=== PATIENT | male | born 1970 | race Caucasian/White ===

== ENCOUNTER 2023-08-31 14:02 | Emergency (ER) | payer MEDICARE ==
[~2023-08-31] VITALS: Ht 172.7 cm; Wt 72.6 kg
[2023-08-31] MEDS ORDERED: BUSP10 PO (14:53)
[2023-08-31] MEDS ORDERED: AMLO5 PO (14:53)
[2023-08-31] MEDS ORDERED: ALBU8HFA2 INH (14:53)
[2023-08-31] MEDS ORDERED: ATOR20 PO (14:53)
[2023-08-31] MEDS ORDERED: QUET300 PO (14:53)
[2023-08-31] MEDS ORDERED: DULO60 PO (14:54)
[2023-08-31] MEDS ORDERED: MIRT15 PO (14:54)
[2023-08-31] MEDS ORDERED: OMEP20ER PO (14:54)
[2023-08-31] MEDS ORDERED: CYCL10 PO (14:54)
[2023-08-31] MEDS ORDERED: TERA5 PO (14:55)
[2023-08-31] MEDS ORDERED: BUPRENORPHIN-N1 EAC1 SL (14:55)
[2023-08-31] MEDS ORDERED: SUMA25 PO (14:55)
[2023-08-31 15:00] LABS: BASOPHILS ABSOLUTE AUTO 0.02 K/mm3 (0.00-0.23); BASOPHILS PERCENT AUTO 0 % (0-2); EOSINOPHILS ABSOLUTE AUTO 0.11 K/mm3 (0.00-0.68); EOSINOPHILS PERCENT AUTO 2 % (0-6); Hematocrit 39.5 % (37.0-53.0); Hemoglobin 13.3 g/dL (13.5-17.5); IMMATURE GRAN ABSOLUTE AUTO 0.01 K/mm3 (0.00-0.10); IMMATURE GRAN PERCENT AUTO 0 % (0-1); LYMPHOCYTES ABSOLUTE AUTO 2.14 K/mm3 (0.84-5.20); LYMPHOCYTES PERCENT AUTO 40 % (21-46); MONOCYTES ABSOLUTE AUTO 0.34 K/mm3 (0.16-1.47); MONOCYTES PERCENT AUTO 6 % (4-13); Mean Corpuscular HGB 30.6 pg (26.0-34.0); Mean Corpuscular HGB Conc 33.7 g/dL (31.5-36.5); Mean Corpuscular Volume 91 fL (80-100); Mean Platelet Volume 8.8 fL (9.1-12.4); NEUTROPHILS ABSOLUTE AUTO 2.78 K/mm3 (1.96-9.15); NEUTROPHILS PERCENT AUTO 52 % (41-73); Platelet Count 210 K/mm3 (150-400); RDW Coefficient Variation 12.1 % (11.7-14.2); RDW Standard Deviation 41.1 fL (35.1-46.3); Red Blood Cell Count 4.34 M/mm3 (4.30-5.90)
[2023-08-31 15:22] LABS: Albumin, Blood 3.9 g/dL (3.4-5.0); Albumin/Globulin Ratio 1.1 (0.8-1.8); Bilirubin, Total 0.4 mg/dL (0.1-1.0); Bun/Creatinine Ratio 12.4 (12.0-20.0); Creatinine, Blood 0.97 mg/dL (0.60-1.20); Globulin, Blood 3.6 g/dL (2.2-4.0); Magnesium, Blood 2.2 mg/dL (1.6-2.4); Total Protein, Blood 7.5 g/dL (6.4-8.2)
[2023-08-31 16:48] VITALS: BP 124/62
== END 2023-08-31 16:49 | disposition home or self-care (01) ==
LOC: ER 14:02
PROVIDERS: Physician Assistant
DX: R53.1 Weakness (principal); R20.2 Paresthesia of skin; F17.200 Nicotine dependence, unspecified, uncomplicated
CPT/HCPCS: 70450; 80053; 83735; 85025; 99284-25

== ENCOUNTER 2024-02-16 12:04 | Inpatient (IN) | payer MEDICARE ==
[~2024-02-16] VITALS: Ht 172.7 cm; Wt 71.4 kg
[~2024-02-16 12:04] MED LIST: ALBU8HFA2 INH; AMLO5 PO; ATOR20 PO; BUPRENORPHIN-N1 EAC1 SL; BUSP10 PO; CEPH500 PO; CYCL10 PO; DOXY100 PO; DULO60 PO; MIRT15 PO; OMEP20ER PO; QUET300 PO; SUMA25 PO; TERA5 PO
[2024-02-16 12:38] LABS: BASOPHILS ABSOLUTE AUTO 0.03 K/mm3 (0.00-0.23); BASOPHILS PERCENT AUTO 0 % (0-2); EOSINOPHILS ABSOLUTE AUTO 0.09 K/mm3 (0.00-0.68); EOSINOPHILS PERCENT AUTO 1 % (0-6); Hematocrit 42.7 % (37.0-53.0); Hemoglobin 14.5 g/dL (13.5-17.5); IMMATURE GRAN ABSOLUTE AUTO 0.01 K/mm3 (0.00-0.10); IMMATURE GRAN PERCENT AUTO 0 % (0-1); LYMPHOCYTES PERCENT AUTO 40 % (21-46); MONOCYTES ABSOLUTE AUTO 0.43 K/mm3 (0.16-1.47); MONOCYTES PERCENT AUTO 6 % (4-13); Mean Corpuscular HGB 30.5 pg (26.0-34.0); Mean Corpuscular Volume 90 fL (80-100); Mean Platelet Volume 8.8 fL (9.1-12.4); NEUTROPHILS ABSOLUTE AUTO 3.71 K/mm3 (1.96-9.15); NEUTROPHILS PERCENT AUTO 52 % (41-73); Platelet Count 220 K/mm3 (150-400); RDW Coefficient Variation 12.4 % (11.7-14.2); RDW Standard Deviation 41.1 fL (35.1-46.3); Red Blood Cell Count 4.75 M/mm3 (4.30-5.90); White Blood Cell Count 7.17 K/mm3 (4.00-11.30)
[2024-02-16 13:02] LABS: Albumin, Blood 4.1 g/dL (3.4-5.0); Albumin/Globulin Ratio 1.2 (0.8-1.8); Bilirubin, Total 0.4 mg/dL (0.1-1.0); Bun/Creatinine Ratio 19.5 (12.0-20.0); Calcium, Blood 9.7 mg/dL (8.5-10.1); Creatinine, Blood 0.82 mg/dL (0.60-1.20); Globulin, Blood 3.3 g/dL (2.2-4.0); Potassium, Blood 4.3 mmol/L (3.5-5.5); Total Protein, Blood 7.4 g/dL (6.4-8.2)
[2024-02-16] MEDS ORDERED: Ondansetron HCl 2 MG / ML 2ML Vial IV ONE (15:00)
[2024-02-16] MEDS ORDERED: Morphine Sulfate 4 MG/1 ML Injection IV ONE (15:00)
--- NOTE | 2024-02-16 17:53 | NUR ---
VERIFIED W/DR RAMOS NO ORDERS FOR ABX UNTIL AFTER SURGERY.
[2024-02-16] MEDS ORDERED: OxyCODONE HCL 5 MG TAB PO PRN (17:55)
[2024-02-16] MEDS ORDERED: Ondansetron HCl 2 MG / ML 2ML Vial IV PRN (17:55)
[2024-02-16 18:05] VITALS: BP 149/91
[2024-02-16 19:38] VITALS: BP 115/79
[2024-02-17] VITALS (14 sets, daily range): BP systolic 99–145; BP diastolic 70–92
[2024-02-17 05:04] LABS: BASOPHILS ABSOLUTE AUTO 0.03 K/mm3 (0.00-0.23); BASOPHILS PERCENT AUTO 0 % (0-2); EOSINOPHILS ABSOLUTE AUTO 0.16 K/mm3 (0.00-0.68); EOSINOPHILS PERCENT AUTO 2 % (0-6); Hematocrit 41.3 % (37.0-53.0); Hemoglobin 13.9 g/dL (13.5-17.5); IMMATURE GRAN ABSOLUTE AUTO 0.02 K/mm3 (0.00-0.10); IMMATURE GRAN PERCENT AUTO 0 % (0-1); LYMPHOCYTES ABSOLUTE AUTO 3.07 K/mm3 (0.84-5.20); LYMPHOCYTES PERCENT AUTO 46 % (21-46); MONOCYTES ABSOLUTE AUTO 0.46 K/mm3 (0.16-1.47); MONOCYTES PERCENT AUTO 7 % (4-13); Mean Corpuscular HGB 29.8 pg (26.0-34.0); Mean Corpuscular HGB Conc 33.7 g/dL (31.5-36.5); Mean Corpuscular Volume 89 fL (80-100); Mean Platelet Volume 8.7 fL (9.1-12.4); NEUTROPHILS ABSOLUTE AUTO 2.94 K/mm3 (1.96-9.15); NEUTROPHILS PERCENT AUTO 44 % (41-73); Platelet Count 199 K/mm3 (150-400); RDW Coefficient Variation 12.5 % (11.7-14.2); RDW Standard Deviation 41.3 fL (35.1-46.3); Red Blood Cell Count 4.66 M/mm3 (4.30-5.90); White Blood Cell Count 6.68 K/mm3 (4.00-11.30)
[2024-02-17 05:29] LABS: Bun/Creatinine Ratio 17.4 (12.0-20.0); Calcium, Blood 8.9 mg/dL (8.5-10.1); Creatinine, Blood 0.8 mg/dL (0.60-1.20); Potassium, Blood 3.8 mmol/L (3.5-5.5)
[2024-02-17] MEDS ORDERED: Omeprazole 20 MG CapCR PO SCH (06:00)
--- NOTE | 2024-02-17 06:45 | NUR ---
Shift Summary Pt AOx4, independent in the room. He c/o severe 8/10 pain t/o the night, he says current pain medication is not managing pain well but he did not want me to call the hospitalist to request something extra, he said he could deal with the pain. Offered ice pack intervention for his painful burning R thumb, pt refused. Medicated Q4 per EMAR. Pt was able to get some sleep but states he has not slept well for a very long time. He stated that he quit duloxetine cold turkey about 1 month ago and has had feelings of restlessness and restless legs since then. I educated on importance of tapering antidepressants. Pt NPO since 0000 in anticipation for bone biopsy of L thumb.
[2024-02-17] MEDS ORDERED: Doxazosin Mesylate 2 MG Tab PO SCH ×2 (09:00→21:40)
[2024-02-17] MEDS ORDERED: Doxazosin Mesylate 8 MG TAB PO SCH (09:00)
[2024-02-17] MEDS ORDERED: OxyCODONE HCL 5 MG TAB PO PRN (14:00)
[2024-02-17] MEDS ORDERED: Lactated Ringer's 1,000 ML IV SCH (15:00)
--- NOTE | 2024-02-17 15:13 | NUR ---
PT HAS 20G IV IN L AC THAT RUNS WELL TO GRAVITY, SHOWS NO SIGNS OF INFILTRATION.
[2024-02-17] MEDS ORDERED: propofoL 20 ML IV ONE (15:36)
[2024-02-17] MEDS ORDERED: FentaNYL Citrate 50 MCG/ML 2 ML Injection ONE (15:37)
[2024-02-17] MEDS ORDERED: Ondansetron HCl 2 MG / ML 2ML Vial ONE (15:54)
[2024-02-17] MEDS ORDERED: Ketorolac Tromethamine 30mg Vial ONE (15:54)
[2024-02-17] MEDS ORDERED: Dexamethasone Sod Phos 10 MG/ML 1ML VIAL ONE (15:54)
[2024-02-17] MEDS ORDERED: Lidocaine HCl 2% 20 ML MDV ONE (15:54)
[2024-02-17] MEDS ORDERED: Bupivacaine 0.5% HCl 5 MG/ML 30MLVIAL ONE (15:57)
[2024-02-17] MEDS ORDERED: CeFAZolin Sodium 2,000 MG in NS 100 ML IV SCH (17:00)
[2024-02-17] MEDS ORDERED: Nicotine 21 MG PATCH TOP ONE (18:40)
[2024-02-17] MEDS ORDERED: Vancomycin HCL 1,500 MG in NS 250 ML IV ONE (19:00)
[2024-02-17] MEDS ORDERED: QUEtiapine Fumarate 200 MG Tab PO SCH (22:26)
[2024-02-17] MEDS ORDERED: NS 250 ML IV PRN (22:45)
[2024-02-18 04:07] VITALS: BP 110/71
[2024-02-18 04:16] LABS: BASOPHILS ABSOLUTE AUTO 0.01 K/mm3 (0.00-0.23); BASOPHILS PERCENT AUTO 0 % (0-2); EOSINOPHILS PERCENT AUTO 0 % (0-6); Hematocrit 41.1 % (37.0-53.0); Hemoglobin 13.8 g/dL (13.5-17.5); IMMATURE GRAN ABSOLUTE AUTO 0.02 K/mm3 (0.00-0.10); IMMATURE GRAN PERCENT AUTO 0 % (0-1); LYMPHOCYTES ABSOLUTE AUTO 1.16 K/mm3 (0.84-5.20); LYMPHOCYTES PERCENT AUTO 15 % (21-46); MONOCYTES ABSOLUTE AUTO 0.46 K/mm3 (0.16-1.47); MONOCYTES PERCENT AUTO 6 % (4-13); Mean Corpuscular HGB Conc 33.6 g/dL (31.5-36.5); Mean Corpuscular Volume 89 fL (80-100); Mean Platelet Volume 8.8 fL (9.1-12.4); NEUTROPHILS ABSOLUTE AUTO 6.13 K/mm3 (1.96-9.15); NEUTROPHILS PERCENT AUTO 79 % (41-73); Platelet Count 198 K/mm3 (150-400); RDW Coefficient Variation 12.3 % (11.7-14.2); RDW Standard Deviation 40.4 fL (35.1-46.3); White Blood Cell Count 7.78 K/mm3 (4.00-11.30)
[2024-02-18 04:37] LABS: Bun/Creatinine Ratio 17.9 (12.0-20.0); Calcium, Blood 8.9 mg/dL (8.5-10.1); Creatinine, Blood 0.78 mg/dL (0.60-1.20); Potassium, Blood 3.9 mmol/L (3.5-5.5)
[2024-02-18] MEDS ORDERED: Vancomycin HCL 1,000 MG in NS 100 ML IV SCH (05:00)
--- NOTE | 2024-02-18 06:00 | NUR ---
SHIFT SUMMARY NO ACUTE CHANGES NOTED THROUGH THE NIGHT, A&O X4, ON RA, VSS, DRSG IS C/D/I, NEW IV PLACED, ABX INFUSING.MARICEL PO, VOIDING WNL. REPORT GIVEN TO EV GEORGE,
[2024-02-18 07:20] VITALS: BP 124/85
--- NOTE | 2024-02-18 07:22 | NUR ---
*LATE ENTRY* ROUGHLY AROUND 2100 LAST NIGHT, WHILE PASSING MEDS FOR PRIMARY RN ANNIA Miller PT INFORMED ME HE MICRO DOSES W/MUSHROOMS & TAKES EDIBLES FOR HIS MENTAL HEALTH. POINTED AT [facility]Y @BEDSIDE STATING IT WAS EDIBLES. NURSING ATTRACTIONS ASSOCIATE INFORMED, SHE INFORMED SECURITY. EARLIER THIS AM SECURITY @BEDSIDE & COUNTED 9 EDIBLE BLUE CANDIES WHICH WERE LOCKED IN PTS LOCKED DRAWER ALONG W/HOME SEROQUEL. PRIMARY RN AWARE.
[2024-02-18] MEDS ORDERED: Nicotine 21 MG PATCH TOP SCH (09:00)
[2024-02-18] MEDS ORDERED: Acetaminophen 325 MG TABLET PO PRN (11:00)
[2024-02-18] MEDS ORDERED: Ketorolac Tromethamine 15mg Vial IV PRN (11:50)
[2024-02-18 14:04] VITALS: BP 100/76
[2024-02-18] MEDS ORDERED: Enoxaparin 40 MG/0.4 ML SYR SC SCH (17:00)
--- NOTE | 2024-02-18 18:12 | NUR ---
SHIFT SUMMARY PT IS LYING IN BED WIDE AWAKE WATCHING TV. A&OX4 HE IS ON ROOM AIR. VSS. HE HAS HAD LITTLE RELIEF FROM PAIN EVEN AFTER BEING MEDICATED PER EMAR. HIS MOOD HAS BEEN CALM MOST OF THE DAY, BUT HE CAN BECOME AGITATED WHEN IT GETS CLOSE TO TIME FOR HIS SCHEDULED PAIN MEDICATION. OTHERWISE, PT HAS NOT EXPERIENCED ANY ACUTE EVENTS TODAY.
[2024-02-18] MEDS ORDERED: LORazepam 1 MG Tab PO ONE (18:20)
[2024-02-18 19:36] VITALS: BP 108/70
[2024-02-18 20:38] LABS: Vancomycin, Trough 18.5 ug/mL (5.0-10.0)
[2024-02-19 05:15] VITALS: BP 115/82
[2024-02-19 05:25] LABS: BASOPHILS ABSOLUTE AUTO 0.03 K/mm3 (0.00-0.23); BASOPHILS PERCENT AUTO 1 % (0-2); EOSINOPHILS PERCENT AUTO 3 % (0-6); Hematocrit 41.4 % (37.0-53.0); Hemoglobin 13.8 g/dL (13.5-17.5); IMMATURE GRAN ABSOLUTE AUTO 0.01 K/mm3 (0.00-0.10); IMMATURE GRAN PERCENT AUTO 0 % (0-1); LYMPHOCYTES PERCENT AUTO 30 % (21-46); MONOCYTES ABSOLUTE AUTO 0.46 K/mm3 (0.16-1.47); MONOCYTES PERCENT AUTO 7 % (4-13); Mean Corpuscular HGB 30.1 pg (26.0-34.0); Mean Corpuscular HGB Conc 33.3 g/dL (31.5-36.5); Mean Corpuscular Volume 90 fL (80-100); Mean Platelet Volume 8.7 fL (9.1-12.4); NEUTROPHILS ABSOLUTE AUTO 3.66 K/mm3 (1.96-9.15); NEUTROPHILS PERCENT AUTO 58 % (41-73); Platelet Count 154 K/mm3 (150-400); RDW Coefficient Variation 12.5 % (11.7-14.2); RDW Standard Deviation 41.4 fL (35.1-46.3); Red Blood Cell Count 4.59 M/mm3 (4.30-5.90); White Blood Cell Count 6.26 K/mm3 (4.00-11.30)
[2024-02-19 05:57] LABS: Bun/Creatinine Ratio 15.7 (12.0-20.0); Calcium, Blood 8.7 mg/dL (8.5-10.1); Creatinine, Blood 0.76 mg/dL (0.60-1.20); Potassium, Blood 3.8 mmol/L (3.5-5.5)
--- NOTE | 2024-02-19 06:09 | NUR ---
SHIFT SUMMARY PT A&O X4, VSS T/O SHIFT. NO ACUTE CHANGES THIS SHIFT. PT CONTINUES TO REPORT A "BURNING" PAIN IN HIS R THUMB "WHERE THEY DID THE SURHERY". MEDICATION PER EMAR WITH ADEQUATE RELIEF. PT AMBULATED HALLWAYS INDEPENDENTLY. PT ABLE TO GET SOME REST THIS SHIFT. OTHERWISE PT HAD UNEVENTFUL EVENING. PT HAD A SHOWER THIS EVENING. CALL LIGHT IN REACH AND PT CURRENTLY RESTING. WILL UPDATE ONCOMING RN
[2024-02-19 07:52] VITALS: BP 120/53
[2024-02-19 15:19] VITALS: BP 123/79
[2024-02-19 18:58] VITALS: BP 120/69
--- NOTE | 2024-02-19 20:20 | NUR ---
PT AMBULATING OUT OF ROOM AT THIS TIME. WILL DO ASSESSMENT WHEN PT RETURNS
--- NOTE | 2024-02-19 20:28 | NUR ---
SHIFT SUMMARY POD2 R THUMB I&D, A/OX4, VSS, TOLERATING PO, PAIN MANAGMENT IMPROVING BUT STILL PAINFUL, INDEPENDENT IN THE ROOM AND HALLS, PENDING CULTURES FOR ABX SELECTION AFTER DISCHARGE. NO ACUTE EVENTS THIS SHIFT, CALL LIGHT IN REACH.
[2024-02-19 20:53] LABS: Vancomycin, Trough 23.7 ug/mL (5.0-10.0)
[2024-02-20] MEDS ORDERED: Vancomycin HCL 1,250 MG in NS 250 ML IV SCH (01:00)
[2024-02-20 05:18] VITALS: BP 124/70
--- NOTE | 2024-02-20 06:42 | NUR ---
POD 3 S/P I&D OIF RIGHT THUMB. PT VSS T/O NIGHT. DRESSING CDI. PAIN MGD PER EMAR W/REP RELIEF, PT DENIED N/T, CAP REFILL WNL. IV ABX CONT PER ORDERS. PT SLEPT RESTLESSLY R/T NIGHT TERRORS. SUPPORT PRN
[2024-02-20 07:29] VITALS: BP 137/87
[2024-02-20 08:28] LABS: BASOPHILS ABSOLUTE AUTO 0.03 K/mm3 (0.00-0.23); BASOPHILS PERCENT AUTO 1 % (0-2); EOSINOPHILS ABSOLUTE AUTO 0.33 K/mm3 (0.00-0.68); EOSINOPHILS PERCENT AUTO 6 % (0-6); Hematocrit 38.2 % (37.0-53.0); Hemoglobin 12.7 g/dL (13.5-17.5); IMMATURE GRAN ABSOLUTE AUTO 0.01 K/mm3 (0.00-0.10); IMMATURE GRAN PERCENT AUTO 0 % (0-1); LYMPHOCYTES ABSOLUTE AUTO 2.07 K/mm3 (0.84-5.20); LYMPHOCYTES PERCENT AUTO 36 % (21-46); MONOCYTES ABSOLUTE AUTO 0.48 K/mm3 (0.16-1.47); MONOCYTES PERCENT AUTO 8 % (4-13); Mean Corpuscular HGB 30.1 pg (26.0-34.0); Mean Corpuscular HGB Conc 33.2 g/dL (31.5-36.5); Mean Corpuscular Volume 91 fL (80-100); NEUTROPHILS ABSOLUTE AUTO 2.91 K/mm3 (1.96-9.15); NEUTROPHILS PERCENT AUTO 50 % (41-73); Platelet Count 161 K/mm3 (150-400); RDW Coefficient Variation 12.6 % (11.7-14.2); RDW Standard Deviation 41.6 fL (35.1-46.3); Red Blood Cell Count 4.22 M/mm3 (4.30-5.90); White Blood Cell Count 5.83 K/mm3 (4.00-11.30)
[2024-02-20 09:21] LABS: Calcium, Blood 8.6 mg/dL (8.5-10.1); Creatinine, Blood 0.77 mg/dL (0.60-1.20)
[2024-02-20] MEDS ORDERED: LORazepam 0.5 MG Tab PO PRN (10:45)
[2024-02-20 14:53] VITALS: BP 129/84
--- NOTE | 2024-02-20 16:58 | NUR ---
SUMMARY POD 3 I&D L THUMB, CONT. IV ABX AND PAIN MEDS, INDEPENDENT IN ROOM, AMBULATED DOWN HALLS X3, L THUMB DRESSING REMOVED BY DR. PINK, FINAL CULTURES AND PATHOLOGY REPORTS PENDING, PT IS AWARE PER DR. PINK, PT WAS ANXIOUS EARLIER TODAY, REPORTS FEELING ANXIOUS DUE TO HIS "NIGHT TERRORS" AND NOT GETTING ADEQUATE SLEEP AND FEELING LIKE HE WANTS TO SMOKE, AND WANTING TO GO HOME NICOTINE PATCH IN PLACE, DR. GRIFFIN TALKED W/ PT ABOUT HIS CONCERNS, PT AGREED TO STAY, ATIVAN ORDERED FOR ANXIETY, PT HAS BEEN PLEASANT AND COOPERATIVE, NO ACUTE CHANGES THIS SHIFT.
[2024-02-20 19:35] VITALS: BP 127/94
[2024-02-20] MEDS ORDERED: Docusate Sodium/Senna 1 Tab PO SCH (21:00)
[2024-02-20] MEDS ORDERED: Polyethylene Glycol 3350 17 gm PO SCH (21:00)
--- NOTE | 2024-02-21 05:23 | NUR ---
SHIFT SUMMARY PT IS POD4 FOR AN I&D OF HIS R THUMB. A/O X4, INDEPENDENT IN ROOM, PT AMBULATED THROUGH HALLS SEVERAL TIMES THIS SHIFT. IV FLUIDS AND ANTIBIOTICS RUNNING ORDERED. WAITING FOR PATHOLOGY RESULTS TO RULE OUT OSTEOMYELITIS. PT MEDICATED FOR PAIN PER EMAR W/ GOOD RESULTS, WAS ABLE TO REST MOST OF THE NIGHT. NO COMPLAINTS THIS SHIFT OF NIGHT TERRORS/ANXIETY EPISODES. DRESSING ON THUMB REMAINS C/D/I. PT USING CALL LIGHT APPROPRIATELY.
[2024-02-21 05:59] VITALS: BP 143/79
[2024-02-21 07:41] VITALS: BP 120/65
[2024-02-21 12:45] LABS: Vancomycin, Trough 16.3 ug/mL (5.0-10.0)
--- NOTE | 2024-02-21 14:45 | NUR ---
Pt. is awake and sitting up on the side of his bed when he welcomes my visit. Facilitate a life review and consider matters of ryan and belief. Pt. displays evidence of being weaarly of the long process of recovery. Listen with empathy and a calming presence. Provide the Pt. with information about a local caodaism with a recovery ministry. Prayed for Pt. Pt. verbalized gratitude for the spiritual care visit and welcomed this patient access coordinator to return.
[2024-02-21 15:16] VITALS: BP 136/89
--- NOTE | 2024-02-21 16:31 | NUR ---
SUMMARY A&OX4, INDEPENDENT, IV ABX, OXYCODONE FOR PAIN ON R THUMB, ATIVAN FOR ANXIETY, AMBULATES THE HALLS FREQUENTLY, TOOK A SHOWER, DSG ON R THUMB CHANGED AFTER SHOWER, PLAN FOR OUTPATIENT IV ABX PER DR. GRIFFIN, NO ACUTE CHANGES THIS SHIFT.
[2024-02-21 20:09] VITALS: BP 132/74
[2024-02-22 04:38] VITALS: BP 129/99
--- NOTE | 2024-02-22 04:42 | NUR ---
POD5 FOR I&D OF R THUMB W/ DR PINK. PT IS A/O, IND IN ROOM, DRESSING ON R THUMB WAS CHANGED YESTERDAY BY DAY RN AND IS STILL C/D/I. IV ANTIBIOTICS GIVEN PER EMAR, MEDICATED FOR PAIN W/ TOLERABLE RESULTS. PT APPEARED TO BE SLEEPING PEACEFULLY THROUGHOUT THE NIGHT BUT REPORTED THIS MORNING THAT HE HAD NIGHTMARES ALL NIGHT. VSS. AWAITING PICC LINE FOR CONTINUED ANTIBIOTICS. PT USING CALL LIGHT APPROPRIATELY.
[2024-02-22 05:35] LABS: BASOPHILS ABSOLUTE AUTO 0.03 K/mm3 (0.00-0.23); BASOPHILS PERCENT AUTO 1 % (0-2); EOSINOPHILS ABSOLUTE AUTO 0.25 K/mm3 (0.00-0.68); EOSINOPHILS PERCENT AUTO 5 % (0-6); Hemoglobin 12.5 g/dL (13.5-17.5); IMMATURE GRAN ABSOLUTE AUTO 0.01 K/mm3 (0.00-0.10); IMMATURE GRAN PERCENT AUTO 0 % (0-1); LYMPHOCYTES ABSOLUTE AUTO 2.41 K/mm3 (0.84-5.20); LYMPHOCYTES PERCENT AUTO 45 % (21-46); MONOCYTES ABSOLUTE AUTO 0.49 K/mm3 (0.16-1.47); MONOCYTES PERCENT AUTO 9 % (4-13); Mean Corpuscular HGB Conc 33.8 g/dL (31.5-36.5); Mean Corpuscular Volume 89 fL (80-100); Mean Platelet Volume 9.1 fL (9.1-12.4); NEUTROPHILS ABSOLUTE AUTO 2.14 K/mm3 (1.96-9.15); NEUTROPHILS PERCENT AUTO 40 % (41-73); Platelet Count 163 K/mm3 (150-400); RDW Coefficient Variation 12.3 % (11.7-14.2); RDW Standard Deviation 39.8 fL (35.1-46.3); Red Blood Cell Count 4.17 M/mm3 (4.30-5.90); White Blood Cell Count 5.33 K/mm3 (4.00-11.30)
[2024-02-22 07:18] VITALS: BP 141/90
--- NOTE | 2024-02-22 08:35 | NUR ---
MORNING NOTE PLEASANT, IND IN ROOM. THUMB WRAPPED IN [place] [employer] [place]. CDI. DECLINES DRSG CHANGE.
[2024-02-22] MEDS ORDERED: ACET325 PO (12:51)
[2024-02-22] MEDS ORDERED: NICO21TP TOP (12:52)
[2024-02-22] MEDS ORDERED: DOXA4 PO (12:52)
[2024-02-22] MEDS ORDERED: DOXA2 PO (12:52)
[2024-02-22] MEDS ORDERED: OXYC10TA19 PO (12:53)
[2024-02-22] MEDS ORDERED: MIRALAX17 GM PO (12:54)
[2024-02-22] MEDS ORDERED: LINE600 PO (12:54)
[2024-02-22] MEDS ORDERED: CLIN300 PO (12:54)
--- NOTE | 2024-02-22 13:05 | NUR ---
DISCHARGE EXCITED FOR DC. G[employer]ZE [employer] GIVEN. UNDERSTANDS IMPORTANCE OF F/U & KEEPING THUMB CLEAN.
--- NOTE | 2024-02-22 15:53 | NUR ---
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
== END 2024-02-22 13:07 | disposition home or self-care (01) | DRG 629 ==
LOC: ER 12:04 → SURS 12:05
PROVIDERS: Family Medicine; Orthopaedic Surgery Sports Medicine; Pharmacist; Physician Assistant; ADMIT Internal Medicine
PROC: 0PBT0ZZ Excision of Right Finger Phalanx, Open Approach (ICD-10-PCS; principal; 2024-02-17 15:30)
DX: E11.69 Type 2 diabetes mellitus with other specified complication (principal); M86.8X4 Other osteomyelitis, hand; F31.9 Bipolar disorder, unspecified; K21.9 Gastro-esophageal reflux disease without esophagitis; N40.0 Benign prostatic hyperplasia without lower urinary tract symptoms; F11.10 Opioid abuse, uncomplicated; I10 Essential (primary) hypertension; E78.5 Hyperlipidemia, unspecified; I25.10 Atherosclerotic heart disease of native coronary artery without angina pectoris; M54.2 Cervicalgia; M54.9 Dorsalgia, unspecified; J43.9 Emphysema, unspecified; M06.9 Rheumatoid arthritis, unspecified; J44.9 Chronic obstructive pulmonary disease, unspecified; G43.909 Migraine, unspecified, not intractable, without status migrainosus; G47.33 Obstructive sleep apnea (adult) (pediatric); F43.10 Post-traumatic stress disorder, unspecified; F41.9 Anxiety disorder, unspecified; M79.7 Fibromyalgia; F14.10 Cocaine abuse, uncomplicated; F15.10 Other stimulant abuse, uncomplicated; Z88.2 Allergy status to sulfonamides; Z79.899 Other long term (current) drug therapy; Z85.038 Personal history of other malignant neoplasm of large intestine; Z98.890 Other specified postprocedural states
CPT/HCPCS: 36415; 80048; 80053; 80202; 85025; 87070; 87075; 87205; 88305; 88311; 96374; 96375; 99284-25; A9270; G0378; J0690; J1100; J1885; J2270; J2405; J2704; J3010; J3370; J7050

== ENCOUNTER 2024-04-12 06:50 | Day surgery (SDC) | payer MEDICARE ==
[2024-04-12] VITALS (27 sets, daily range): BP systolic 121–172; BP diastolic 83–106
[~2024-04-12] VITALS: Ht 170.2 cm; Wt 69.1 kg
[~2024-04-12 06:50] MED LIST changes: +ACET325 PO; +CLIN300 PO; +DOXA2 PO; +DOXA4 PO; +IBUP800 PO; +LINE600 PO; +Lactated Ringer's 1,000 ML IV SCH; +MIRALAX17 GM PO; +NICO21TP TOP; +OXYC10TA19 PO
--- NOTE | 2024-04-12 07:19 | NUR ---
Ambulatory in Day Surgery History, Chart, Medications and Allergies reviewed before start of procedure.Lungs clear T/O to Auscultation. Patient confirms NPO status and agrees with scheduled surgery. Patient states colon prep results clear. Patient States Post-Procedure ride home has been arranged.
[2024-04-12] MEDS ORDERED: propofoL 40 ML IV ONE (07:22)
[2024-04-12] MEDS ORDERED: Midazolam HCl 1MG / ML 2ML Vial ONE (07:22)
[2024-04-12] MEDS ORDERED: Benzocaine Oral Spray 0.5ML UD ONE (07:58)
--- NOTE | 2024-04-12 08:22 | NUR ---
04/12/24 0822 Kaz Sevilla HISTORY, CHART, MEDICATIONS AND ALLERGIES REVIEWED BEFORE START OF PROCEDURE. PATIENT CONFIRMS NPO STATUS AND AGREES WITH SCHEDULED PROCEDURE. 3-LEAD EKG REVIEWED WITH PHYSICIAN PRIOR TO START OF PROCEDURE. MONITOR INTACT WITH CONTINUOUS PULSE OXIMETRY,CAPNOGRAPHY, 3-LEAD EKG, INTERMITTENT BP. SUPPLEMENTAL O2 TO BE TITRATED THROUGHOUT PROCEDURE TO MAINTAIN O2 SATURATION ABOVE 90%. PATIENT DETERMINED TO BE ASA APPROPRIATE FOR PROPOFOL SEDATION PRIOR TO START OF PROCEDURE BY
--- NOTE | 2024-04-12 09:22 | NUR ---
DISCHARGE NOTE Patient up to Ambulate independently. Gait steady. Discharge instructions reviewed with patient. Patient verbalizes understanding. Copy given to patient to take home. Lungs clear T/O to Auscultation, pt has productive cough at baseline. VSS. Pt is complaining of moderate abdominal pain and is burping up phlegm, consulted w/ Dr. Hernandez, order for Zofran recieved but pt refused. No further orders recieved, Dr. Hernandez says "cramping is to be expected." Pt encouraged to pass gas. Pt states he is hypertensive at baseline. Discharged via wheelchair to private car for ride home.
== END 2024-04-12 22:40 | disposition home or self-care (01) ==
LOC: ORSCMMR 06:50 → ORD 08:00 → ORSCMMR 22:40
PROVIDERS: Internal Medicine Gastroenterology
PROC: 0DB48ZX Excision of Esophagogastric Junction, Via Natural or Artificial Opening Endoscopic, Diagnostic (ICD-10-PCS; principal; 2024-04-12 08:00)
PROC: 0DBP8ZX Excision of Rectum, Via Natural or Artificial Opening Endoscopic, Diagnostic (ICD-10-PCS; principal; 2024-04-12 08:00)
PROC: 0DB98ZX Excision of Duodenum, Via Natural or Artificial Opening Endoscopic, Diagnostic (ICD-10-PCS; principal; 2024-04-12 08:00)
DX: R19.5 Other fecal abnormalities (principal); R19.4 Change in bowel habit; K62.1 Rectal polyp; R10.13 Epigastric pain; K44.9 Diaphragmatic hernia without obstruction or gangrene; K21.9 Gastro-esophageal reflux disease without esophagitis; R10.84 Generalized abdominal pain; R63.4 Abnormal weight loss; F43.10 Post-traumatic stress disorder, unspecified; F99 Mental disorder, not otherwise specified; F19.11 Other psychoactive substance abuse, in remission; Z79.899 Other long term (current) drug therapy; Z87.891 Personal history of nicotine dependence
CPT/HCPCS: 88305; A9270; J2250; J2704; J7120